=== PATIENT | female | born 1970 | race Caucasian/White ===

== ENCOUNTER 2021-05-08 09:28 | Outpatient (CLI) | payer OTHER, SELFPAY ==
[2021-05-08 09:57] LABS: Basophils Percent Auto 0.6 % (0.2-1.2); Eosinophils Absolute Auto 0.4 K/mm3 (0-0.3); Eosinophils Percent Auto 6.3 % (0-4.4); Hematocrit 42.4 % (37.0-47.0); Hemoglobin 13.6 g/dL (12.0-15.0); Immature Granulocyte Absolute 0.02 K/mm3 (0.00-0.031); Immature Granulocyte Percent A 0.3 % (0-0.5); Lymphocytes Absolute Auto 2.04 K/mm3 (0.9-3.2); Lymphocytes Percent Auto 29.4 % (18.3-44.2); Mean Corpuscular HGB Conc 32.1 g/dl (32-36); Mean Corpuscular Hemoglobin 28.3 pg (26-34); Mean Corpuscular Volume 88.1 fl (80-100); Mean Platelet Volume 9.4 fl (7.4-10.4); Monocytes Absolute Auto 0.4 K/mm3 (0.1-0.6); Monocytes Percent Auto 6.1 % (2.6-8.5); Neutrophils Percent Auto 57.3 % (45.5-73.1); Platelet Count Result 259 k/mm3 (150-375); Red Blood Count 4.81 M/mm3 (4.2-5.4); Red Cell Distribution Width 13.6 % (11.5-14.5); White Blood Count 6.9 K/mm3 (4.5-10.0)
[2021-05-08 11:52] LABS: Alanine Aminotransferase 41 U/L (4-35); Albumin Level 4.5 g/dL (3.5-5.1); Alkaline Phosphatase 70 U/L (38-126); Anion Gap 11 mmol/L (8-16); Aspartate Amino Transferase 39 U/L (14-36); Bilirubin,Total 0.5 mg/dL (0.2-1.3); Blood Urea Nitrogen 21 mg/dL (7-17); Calcium 9.4 mg/dL (8.4-10.2); Carbon Dioxide 22 mmol/L (22-30); Chloride 106 mmol/L (98-107); Cholesterol 82 mg/dL (0-200); Estimated Glomerular Filt Rate > 60; Glucose 110 mg/dL (65-110); HDL Direct 31 mg/dL; Potassium 3.9 mmol/L (3.4-5.0); Sodium 139 mmol/L (137-145); Triglycerides 140 mg/dL (<150)
[2021-05-08 12:03] LABS: LDL Cholesterol Direct 94 mg/dL
[2021-05-08 14:50] LABS: Free T4 Free Thyroxine Reflex 0.86 ng/dL (0.78-2.19)
[2021-05-08 21:10] LABS: Total Triiodothyronine (T3) 1.39 NG/ML (0.97-1.69)
== END 2021-05-08 09:29 | disposition home or self-care (01) ==
PROVIDERS: PCP Family Medicine; Visit Provider Physician Assistant
DX: F41.9 Anxiety disorder, unspecified (principal); I10 Essential (primary) hypertension; Z13.220 Encounter for screening for lipoid disorders
CPT/HCPCS: 36415; 80053; 80061; 84439; 84443; 84480; 85025

== ENCOUNTER 2022-01-16 17:13 | Outpatient (CLI) | payer OTHER, SELFPAY ==
[2022-01-16 17:39] LABS: Basophils Percent Auto 0.4 % (0.2-1.2); Eosinophils Absolute Auto 0.4 K/mm3 (0-0.3); Eosinophils Percent Auto 5.2 % (0-4.4); Hematocrit 44.9 % (37.0-47.0); Hemoglobin 14.3 g/dL (12.0-15.0); Immature Granulocyte Absolute 0.03 K/mm3 (0.00-0.031); Immature Granulocyte Percent A 0.4 % (0-0.5); Lymphocytes Absolute Auto 1.79 K/mm3 (0.9-3.2); Lymphocytes Percent Auto 26.7 % (18.3-44.2); Mean Corpuscular HGB Conc 31.8 g/dl (32-36); Mean Corpuscular Hemoglobin 28.7 pg (26-34); Mean Corpuscular Volume 90.2 fl (80-100); Mean Platelet Volume 9.2 fl (7.4-10.4); Monocytes Absolute Auto 0.4 K/mm3 (0.1-0.6); Monocytes Percent Auto 6.1 % (2.6-8.5); Neutrophils Absolute Auto 4.1 K/mm3 (1.3-6.7); Neutrophils Percent Auto 61.2 % (45.5-73.1); Platelet Count Result 264 k/mm3 (150-375); Red Blood Count 4.98 M/mm3 (4.2-5.4); Red Cell Distribution Width 14.9 % (11.5-14.5); White Blood Count 6.7 K/mm3 (4.5-10.0)
[2022-01-16 17:49] LABS: Alanine Aminotransferase 31 U/L (6-35); Albumin Level 4.6 g/dL (3.5-5.1); Alkaline Phosphatase 73 U/L (38-126); Anion Gap 7 mmol/L (8-16); Aspartate Amino Transferase 37 U/L (14-36); Bilirubin,Total 0.7 mg/dL (0.2-1.3); Blood Urea Nitrogen 18 mg/dL (7-17); Calcium 8.9 mg/dL (8.4-10.2); Carbon Dioxide 26 mmol/L (22-30); Chloride 104 mmol/L (98-107); Cholesterol 175 mg/dL (0-200); Estimated Glomerular Filt Rate 58; Glucose 104 mg/dL (65-110); HDL Direct 29 mg/dL; Potassium 3.9 mmol/L (3.4-5.0); Sodium 137 mmol/L (137-145); Triglycerides 189 mg/dL (<150)
[2022-01-16 17:52] LABS: Hemoglobin A1C 5.4 % (<5.7)
[2022-01-16 18:00] LABS: LDL Cholesterol Direct 95 mg/dL
[2022-01-16 18:19] LABS: Total Triiodothyronine (T3) 1.17 NG/ML (0.97-1.69)
[2022-01-16 18:25] LABS: Free T4 Free Thyroxine 0.87 ng/mL (0.78-2.19)
== END 2022-01-16 17:14 | disposition home or self-care (01) ==
LOC: ANHLAB 17:14
PROVIDERS: PCP Family Medicine; Visit Provider Family Medicine
DX: E11.9 Type 2 diabetes mellitus without complications (principal); E03.9 Hypothyroidism, unspecified; I10 Essential (primary) hypertension
CPT/HCPCS: 36415; 80053; 80061; 83036; 84439; 84443; 84480; 85025

== ENCOUNTER 2022-01-21 14:52 | Outpatient (CLI) | payer OTHER, SELFPAY ==
--- NOTE | ~2022-01-21 | XR_ITS ---
EXAMINATION: XR chest 2V 01/21/2022 15:14 INDICATION: Shortness of breath PROCEDURE: 2 view chest COMPARISON: No prior studies for comparison. FINDINGS: The lungs are clear. The cardiomediastinal silhouette is within normal limits. There are no pleural effusions. There is no pneumothorax suspected. IMPRESSION: 1: NO ACUTE CARDIOPULMONARY DISEASE. Reviewed, dictated and finalized at location A.
== END 2022-01-21 14:53 | disposition home or self-care (01) ==
PROVIDERS: PCP Family Medicine; Visit Provider Nurse Practitioner Gerontology
DX: R06.02 Shortness of breath (principal)
CPT/HCPCS: 71046

== ENCOUNTER 2022-02-19 13:56 | Outpatient (CLI) | payer OTHER, SELFPAY ==
--- NOTE | ~2022-02-19 | CT_ITS ---
EXAMINATION: CT abdomen pelvis w con DATE: 02/19/2022 14:31 INDICATION: Nausea and vomiting. Diarrhea. Abdominal pain. TECHNIQUE: Computed tomography (CT) of the abdomen and pelvis was performed with 100 mL Omnipaque 300 intravenous contrast. Automated exposure control and iterative reconstruction technique were employe d. The dose-length product was 1437.36 mGy-cm. COMPARISON: None. FINDINGS: The visualized portions of the lung bases are clear without pneumonia or pleural effusion. The heart size is normal. No pericardial effusion. There is diffuse hepatic steatosis. The gallbladde r, spleen, pancreas, and adrenal glands are normal. There is mild atrophy of the kidneys. There are n o dilated loops of bowel. The appendix is not visualized. There is an umbilical hernia containing fat . There are no pathologically enlarged lymph nodes. There is no free intraperitoneal fluid. There is severe lumbar spondylosis. IMPRESSION: 1. Diffuse hepatic steatosis. 2. Umbilical hernia containing fat. Reviewed, dictated and finalized at location A.
[2022-02-19 14:23] LABS: Estimated Glomerular Filt Rate > 60
== END 2022-02-19 13:57 | disposition home or self-care (01) ==
PROVIDERS: PCP Family Medicine; Visit Provider Nurse Practitioner Gerontology
DX: R11.2 Nausea with vomiting, unspecified (principal); R19.7 Diarrhea, unspecified; R10.9 Unspecified abdominal pain; K76.0 Fatty (change of) liver, not elsewhere classified; K42.9 Umbilical hernia without obstruction or gangrene
CPT/HCPCS: 74177; Q9967

== ENCOUNTER 2022-04-10 01:49 | Day surgery (SDC) | payer OTHER, SELFPAY ==
[2022-04-01 12:28] VITALS: BMI 47.2
[2022-04-10 09:17] VITALS: BP 176/105; PULSE 101; RESP 20; TEMP 36.1; O2SAT 99; BMI 46.7
--- NOTE | 2022-04-10 09:33 | PM.HPGS ---
History of Present Illness History of Present Illness Consent: Risks, benefits, and alternatives have been discussed and questions answered. Patient agrees to proceed with procedure. Chief complaint: N&V, diarrhea Narrative: Brittaney Kaur is a 52 year old female with intermittent episodes of n/v/d. CT scan a/p negative to explain symptoms, never had scopes. Review of Systems Constitutional: Constitutional: Denies headache(s) and Denies weakness Eyes: Eyes: Denies blurry vision ENT: Reports Normal hearing present, Denies headache(s) and Denies neck pain Cardiovascular: Cardiovascular: Denies chest pain and Denies dyspnea Respiratory: Respiratory: Denies dyspnea Gastrointestinal: Gastrointestinal: Reports no additional gastrointestinal complaints Genitourinary: Genitourinary: Denies dysuria Musculoskeletal: Musculoskeletal: Denies neck pain Integumentary/Breasts: Skin/Breast: Denies dry skin Neurologic: Reports Normal hearing present, Denies headache(s) and Denies weakness Psychiatric: Psychiatric: Denies anxiety Endocrine: Endocrine: Denies change in body appearance Hematologic/Lymphatic: Hematologic/Lymphatic: Denies easy bleeding Allergic/Immunologic: Allergic/Immunologic: Denies urticaria PMFSH Past Medical History Medical History ADD (attention deficit disorder) without hyperactivity Adult BMI 40.0-44.9 kg/sq m Benign essential HTN Generalized anxiety disorder Major depressive disorder MARY on CPAP Sinusitis Surgical History Surgical History History of appendectomy History of carpal tunnel release History of total hysterectomy Tubal ligation status Family History Family History Mother Family history of bipolar disorder Other Asthma Depression OCD (obsessive compulsive disorder) Social History Social History Social History: Smoking status: Never smoker Second hand tobacco smoke exposure: No Alcohol intake: current Substance use: never Substance use type: does not use Living arrangements: with family Gender identity (if verbalized by the patient): Female Sexual Orientation (if Verbalized by the Patient): Straight or Heterosexual Spiritual care concerns: No Meds Home Medications and Allergies Home Medications Medication Instructions Recorded Confirmed Type fluoxetine 40 mg capsule 40 mg PO DAILY 01/10/21 04/10/22 History lamotrigine 150 mg tablet 150 mg PO DAILY 01/10/21 04/10/22 History albuterol sulfate 90 mcg/actuation 1 inh inhalation Q4H PRN shortness 11/27/21 04/10/22 Rx aerosol inhaler (ProAir HFA) of breath or wheezing #8.5 grams carvedilol 25 mg tablet 25 mg PO Q12H #180 tabs 11/27/21 04/10/22 Rx losartan 100 1 tablet PO DAILY #90 tabs 11/27/21 04/10/22 Rx mg-hydrochlorothiazide 12.5 mg tablet methylphenidate HCl 36 mg 36 mg PO QAM 01/21/22 04/10/22 History tablet,extended release 24 hr (Concerta) nystatin 100,000 unit/gram topical 1 applic topical BID #30 grams 02/11/22 04/10/22 Rx cream duloxetine 60 mg capsule,delayed 60 mg PO DAILY 04/01/22 04/10/22 History release Allergies Allergy/AdvReac Type Severity Reaction Status Date / Time No Known Allergies Allergy Verified 04/10/22 09:27 Vital Signs Vital Signs - 24 hr 04/10/22 09:17 Temperature 97.0 F L Pulse Rate 101 H Respiratory Rate 20 Blood Pressure 176/105 H Pulse Oximetry 99 Oxygen Delivery Room Air Exam Const: General: comfortable and no acute distress HENMT: General nose exam: Normal nares present Eyes: General: appearance normal, both eyes and all related structures Neck: Neck: no JVD Resp: Auscultation: clear to auscultation bilaterally Cardio: Rate: regular rate Rhythm: regular rhyth
--- NOTE | 2022-04-10 09:36 | WPDANESEPPF ---
Anes - Initial Pre Proc Eval Procedure: Operation Date: 04/10/22 10:45 Proposed Procedures p Esophagogastroduodenoscopy & Colonoscopy - Alejandro Mcdonald MD Date/Time: 04/10/22 09:36 Surgeon: Alejandro Mcdonald MD Pre Op Diagnosis: N&V, diarrhea Patient Data Age: 52 Gender: F Height: 1.75 m Weight: 143.8 kg Last Vital Signs Temp 97.0 F L 04/10/22 09:17 Pulse 101 H 04/10/22 09:17 Resp 20 04/10/22 09:17 BP 176/105 H 04/10/22 09:17 Pulse Ox 99 04/10/22 09:17 O2 Del Method Room Air 04/10/22 09:17 Allergies Allergy/AdvReac Type Severity Reaction Status Date / Time No Known Allergies Allergy Verified 04/10/22 09:27 Home Medications Medication Instructions Recorded Confirmed Type fluoxetine 40 mg capsule 40 mg PO DAILY 01/10/21 04/10/22 History lamotrigine 150 mg tablet 150 mg PO DAILY 01/10/21 04/10/22 History albuterol sulfate 90 mcg/actuation 1 inh inhalation Q4H PRN shortness 11/27/21 04/10/22 Rx aerosol inhaler (ProAir HFA) of breath or wheezing #8.5 grams carvedilol 25 mg tablet 25 mg PO Q12H #180 tabs 11/27/21 04/10/22 Rx losartan 100 1 tablet PO DAILY #90 tabs 11/27/21 04/10/22 Rx mg-hydrochlorothiazide 12.5 mg tablet methylphenidate HCl 36 mg 36 mg PO QAM 01/21/22 04/10/22 History tablet,extended release 24 hr (Concerta) nystatin 100,000 unit/gram topical 1 applic topical BID #30 grams 02/11/22 04/10/22 Rx cream duloxetine 60 mg capsule,delayed 60 mg PO DAILY 04/01/22 04/10/22 History release Patient hx anesthesia problems: none Family hx anesthesia problems: none Results Review: All pre-operative results and documents have been reviewed as part of the pre-operative evaluation. [facility] Past Medical History Medical History ADD (attention deficit disorder) without hyperactivity Adult BMI 40.0-44.9 kg/sq m Benign essential HTN Generalized anxiety disorder Major depressive disorder MARY on CPAP Sinusitis Surgical History Surgical History History of appendectomy History of carpal tunnel release History of total hysterectomy Tubal ligation status Family History Family History Mother Family history of bipolar disorder Other Asthma Depression OCD (obsessive compulsive disorder) Social History Social History Social History: Smoking status: Never smoker Second hand tobacco smoke exposure: No Alcohol intake: current Substance use: never Substance use type: does not use Living arrangements: with family Gender identity (if verbalized by the patient): Female Sexual Orientation (if Verbalized by the Patient): Straight or Heterosexual Spiritual care concerns: No Anes - Eval Final PreProcedure Day of Procedure 04/10/22 09:36 Patient weight: morbidly obese Heart: regular rate and rhythm Lungs: clear to auscultation Airway: Mallampati scale class II Neurological: alert and oriented Last oral intake: >/= 8 hours ASA classification: III Emergent: no Anesthetic plan: proceed Anesthesia type and monitoring: general GIVS and standard monitoring Results Review: All pre-operative results and documents have been reviewed as part of the pre-operative evaluation. Informed Consent: The patient's anesthetic plan and its attendant risks and benefits were discussed with the patient/family/POA. Questions were solicited and answers provided to the satisfaction of the patient/family/POA.
[2022-04-10] MEDS: LACTATED RINGERS 1,000 ML 150 ML IV CONT (09:38)
[2022-04-10] MEDS: BENZOCAINE (*SP) 60 ML SPRAY CAN (HURRICAINE) 1 SPRAY MUCOUS MEM (09:46)
--- NOTE | 2022-04-10 09:56 | SUR.OPER ---
EGD ENDED AT 952, COLONOSCOPY STARTED AT 958.
[2022-04-10 10:10] VITALS: BP 156/94; PULSE 108; RESP 19; O2SAT 97
[2022-04-10 10:20] VITALS: BP 154/96; PULSE 102; RESP 16; O2SAT 98
[2022-04-10 10:30] VITALS: BP 152/101; PULSE 90; RESP 24; O2SAT 98
== END 2022-04-10 10:41 | disposition home or self-care (01) ==
PROVIDERS: PCP Family Medicine; Visit Provider Internal Medicine Gastroenterology
PROC: 0DJ08ZZ Inspection of Upper Intestinal Tract, Via Natural or Artificial Opening Endoscopic (ICD-10-PCS; CPT 43235; principal; 2022-04-10 10:45)
DX: Z12.11 Encounter for screening for malignant neoplasm of colon (principal); R19.7 Diarrhea, unspecified; R11.2 Nausea with vomiting, unspecified; R10.9 Unspecified abdominal pain; F98.8 Other specified behavioral and emotional disorders with onset usually occurring in childhood and adolescence; I10 Essential (primary) hypertension; F41.1 Generalized anxiety disorder; F32.A Depression, unspecified; G47.33 Obstructive sleep apnea (adult) (pediatric); Z79.51 Long term (current) use of inhaled steroids; E66.01 Morbid (severe) obesity due to excess calories; Z68.42 Body mass index [BMI] 45.0-49.9, adult
CPT/HCPCS: 45380; 43239; 88305; J2704; J7120

== ENCOUNTER 2022-04-24 08:14 | Outpatient (CLI) | payer OTHER, SELFPAY ==
--- NOTE | ~2022-04-24 | NM_ITS ---
EXAM: NM gastric emptying study DATE: 04/24/2022 13:19 INDICATION: Nausea and vomiting. TECHNIQUE: A gastric emptying study was performed using the methodology of Trent BAH, et al. J Nucl Med 2007; 48:568-572. The patient was given a meal consisting of 2 scrambled eggs labeled with 0.944 mCi Tc-99m sulfur colloid, 2 slices of toast, two packages of jam, and approximately 120 mL of water . Simultaneous anterior and posterior 1-min images of the abdomen were obtained with the patient supi ne at multiple time points over a total period of 4 hours. The geometric mean of anterior and posteri or views was determined, and the percentage retention was calculated for each time point. COMPARISON: CT abdomen and pelvis 02/19/2022 FINDINGS: Gastric retention of the radiotracer-labeled meal was 40%, 19%, and 5% at the 1-hour, 2-ho ur, and 4-hour time points, respectively. With this technique, apparent rapid gastric emptying is sug gested by <30% gastric retention at 1 hour. Delayed gastric emptying is defined by gastric retention of >90% at 1 hour, >60% retention at 2 hours, or >10% retention at 4 hours. IMPRESSION: 1. Normal gastric emptying. Reviewed, dictated and finalized at location A. IMPRESSION: 1. Normal gastric emptying.
== END 2022-04-24 08:15 | disposition home or self-care (01) ==
PROVIDERS: PCP Family Medicine; Visit Provider Internal Medicine Gastroenterology
DX: R11.2 Nausea with vomiting, unspecified (principal); R10.9 Unspecified abdominal pain
CPT/HCPCS: 78264; A9541

== ENCOUNTER 2024-08-31 09:09 | Outpatient (CLI) | payer OTHER, SELFPAY ==
[2024-08-31 09:46] LABS: Basophils Percent Auto 0.5 % (0.2-1.2); Eosinophils Absolute Auto 0.2 K/mm3 (0-0.3); Eosinophils Percent Auto 2.9 % (0-4.4); Hematocrit 46.4 % (37.0-47.0); Hemoglobin 15.4 g/dL (12.0-15.0); Immature Granulocyte Absolute 0.02 K/mm3 (0.00-0.031); Immature Granulocyte Percent A 0.3 % (0-0.5); Lymphocytes Percent Auto 24.8 % (18.3-44.2); Mean Corpuscular HGB Conc 33.2 g/dl (32-36); Mean Corpuscular Hemoglobin 29.6 pg (26-34); Mean Corpuscular Volume 89.2 fl (80-100); Mean Platelet Volume 9.2 fl (7.4-10.4); Monocytes Absolute Auto 0.4 K/mm3 (0.1-0.6); Monocytes Percent Auto 5.7 % (2.6-8.5); Neutrophils Absolute Auto 4.2 K/mm3 (1.3-6.7); Neutrophils Percent Auto 65.8 % (45.5-73.1); Platelet Count Result 244 k/mm3 (150-375); White Blood Count 6.5 K/mm3 (4.5-10.0)
[2024-08-31 09:54] LABS: Hemoglobin A1C 5.5 % (<5.7)
[2024-08-31 10:11] LABS: Free T4 Free Thyroxine 0.97 ng/dL (0.78-2.19)
[2024-08-31 11:00] LABS: Alanine Aminotransferase 28 U/L (6-35); Albumin Level 4.2 g/dL (3.5-5.1); Alkaline Phosphatase 55 U/L (38-126); Anion Gap 5 mmol/L (4-12); Aspartate Amino Transferase 38 U/L (14-36); Bilirubin,Total 0.8 mg/dL (0.2-1.3); Blood Urea Nitrogen 21 mg/dL (7-17); Calcium 9.6 mg/dL (8.4-10.2); Carbon Dioxide 24 mmol/L (22-30); Chloride 109 mmol/L (98-107); Cholesterol 204 mg/dL (0-200); Estimated Glomerular Filt Rate 57; Glucose 120 mg/dL (65-110); HDL Direct 33 mg/dL; Sodium 138 mmol/L (137-145); Triglycerides 187 mg/dL (<150)
[2024-08-31 11:08] LABS: LDL Cholesterol Direct 115 mg/dL
== END 2024-08-31 09:10 | disposition home or self-care (01) ==
LOC: ANHLAB 09:10
PROVIDERS: PCP Family Medicine; Visit Provider Physician Assistant
DX: E07.9 Disorder of thyroid, unspecified (principal); I10 Essential (primary) hypertension; E66.09 Other obesity due to excess calories; Z13.1 Encounter for screening for diabetes mellitus; Z13.220 Encounter for screening for lipoid disorders
CPT/HCPCS: 36415; 80053; 80061; 83036; 84439; 84443; 85025

== ENCOUNTER 2025-04-07 12:34 | Emergency (ER) | payer OTHER, SELFPAY ==
--- OUTSIDE RECORDS SUMMARY | 2025-04-07 12:36 | XMS_ITS | Clinical Summary ---
Author Organization [facility] Address [address] [place] [id number] Care Team Providers Care Prize Fighter Name Role Phone Unavailable Primary Care Provider Unavailabl e Immunizations Immunization Administration Dates Next Due MODERNA COVID-19 (12+) MRNA, LNP-S, PF, 100 MCG/ 0.5 ML DOSE 01/02/2021,12/05/2020 Social History Tobacco Use Types Packs/Day Years Used Date Smoking Tobacco: Never Assessed Comments Unknown Sex and Gender Information Value Date Recorded Sex Assigned at Not on file Legal Sex Female 3:07 PM CDT Gender Identity Not on file Sexual Orientation Not on file Plan of Treatment Health Maintenance Due Date Last Done Comments Cervical Cancer Screening Pa p Smear (Age 30 to 64) Every 3 Years 1968 Colorectal Cancer Screening Colonoscopy (10 Years) 1968 Annual Physical 01/03/1971 Hepatitis C 01/03/1986 DTaP, Tdap and Td Vaccines ( 1 - Tdap) 01/03/1987 Hepatitis B Vaccines (1 of 3 - 19+ 3-dose series) 01/03/1987 Cervical Cancer Screening Pa p with HPV Testing (Age 30 to 64) Every 5 Years 01/03/1998 Cervical Cancer Screening wi th HPV 01/03/1998 Mammogram Screening 2008 Pneumococcal Vaccine: 50+ Years (1 of 1 - PCV) 01/03/2018 Zoster Vaccines (1 of 2) 01/03/2018 COVID-19 Vaccine ( - 2023-2 5 season) 2024 01/02/2021, 12/05/2020 Meningococcal B Vaccine Aged Out No l onger eligible based on patient's age to complete this topic Meningococcal Vaccine Aged Out No rosy michael eligible based on patient's age to complete this topic RSV Immunizations Under 20 Months Aged Out No longer eligible b ased on patient's age to complete this topic
--- OUTSIDE RECORDS SUMMARY | 2025-04-07 12:36 | XMS_ITS | Clinical Summary ---
Author Organization [facility] Address [address] [place] [address] Care Team Providers Care Treasurer Name Role Phone Norah Ibarra MD Primary Care Provider + Source Comments [facility],non-owned Affiliates and Associated Physician Practices is amultiple site organization consisting of ambulatory clinics and hospital sitesin [place], [place], [place] and [place]. This disclosure is being madepursuant to the Care Everywhere program and may not contain all information available regarding this patient. Last updated 18.[facility] Allergies No known active allergies Medications * Be aware that medications may not be up to date on this document. Alwaysverify current medications with the patient. carvedilol (COREG) 3.125 MG tablet Take 3.125 mg by mouth 2 times daily with morning and evening meal. Active FLUoxetine (PROZAC) 10 MG capsule Take 10 mg by mouth at bedtime. Active lamoTRIgine (LAMICTAL) 150 MG tablet Take 150 mg by mouth 2 times daily. Active losartan (COZAAR) 25 MG tablet Take 25 mg by mouth at bedtime. Active valACYclovir (VALTREX) 500 MG tablet Take 500 mg by mouth at bedtime. Active Nutritional Supplements (ESTROVEN PO) Take by mouth at bedtime. Active methylphenidate CR 36 MG tablet Take 36 mg by mouth every morning. Active oxyCODONE-acetam inophen (PERCOCET) 5-325 MG tablet Take 1 Tab by mouth every 4 hours as needed for Pain. Active Social History Tobacco Use Types Packs/Day Years Used Date Smoking Tobacco: Never Comments Unknown Sex and Gender Information Value Date Recorded Sex Assigned at Not on file Legal Sex Female 3:37 PM CDT Gender Identity Not on file Sexual Orientation Not on file Last Filed Vital Signs Vital Sign Reading Time Taken Comments Blood Pressure 132/94 01/26/2015 12:11 PM CDT Pulse 105 01/26/2015 12:11 PM CDT Temperature - - Respiratory Rate 16 01/26/2015 12:11 PM CDT Oxygen Saturation 99% 01/26/2015 12:11 PM CDT Inhaled Oxygen Concentration - - Weight - - Height - - Body Mass Index - - Plan of Treatment Health Maintenance Due Date Last Done Comments COLOGUARD (AGES 45-75) - COL ON CA SCREENING 1968 COLON MONITORING 1968 COLONOSCOPY - COLON CA SCREENING 1968 CT COLONOGRAPHY - COLON CA SCREENING 1968 Colorectal Cancer Screening 1968 FIT - COLON CA SCREENING 1968 FLEX SIG - COLON CA SCREENING 1968 LIPID TESTING 1968 MAMMOGRAM 1968 HIV SCREENING 01/03/1983 HEPATITIS C SCREENING 12/30/1985 DTAP/TDAP/TD VACCINES (1 - Tdap) 01/03/1987 HEPATITIS B VACCINE (1 of 3 - 19+ 3-dose series) 01/03/1987 PNEUMOCOCCAL VACCINE 50+ (1 of 1 - PCV) 01/03/2018 ZOSTER VACCINE (1 of 2) 01/03/2018 COVID-19 VACCINE (1 - 2023-2 5 season) 2024 DEPRESSION SCREENING 09/01/2024 INFLUENZA VACCINE (#1) 2025 HIB VACCINE Aged Out No longer eligi ble based on patient's age to complete this topic HPV VACCINE Aged Out No longer eligi ble based on patient's age to complete this topic MENINGOCOCCAL (Group B) VACC INE SHARED DECISION-MAKING Aged Out No longer eligibl e based on patient's age to complete this topic MENINGOCOCCAL GROUPS A/C/Y/W VACCINE Aged Out No longer eligible b ased on patient's age to complete this topic Insurance [facility] Care Teams Treasurer Relationship Specialty Start Date End Date Norah Ibarra MD [address] [place] [address] PCP - General Family Medicine 01/04/15
[2025-04-07 12:40] VITALS: BP 149/93; PULSE 84; RESP 18; TEMP 36.4; O2SAT 98
[2025-04-07] MEDS: oxyCODONE/ACETAMINOPHEN (*CRX) 5-325 MG TABLET 1 TABLET PO (14:54)
--- OUTSIDE RECORDS SUMMARY | 2025-04-07 14:58 | XMS_ITS | Clinical Summary ---
Author Organization [facility] Address [address] [place] [address] Care Team Providers Care Clinical Biostatistics Director Name Role Phone Norah Ibarra MD Primary Care Provider + Source Comments [facility],non-owned Affiliates and Associated Physician Practices is amultiple site organization consisting of ambulatory clinics and hospital sitesin [place], [place], [place] and [place]. This disclosure is being madepursuant to the Care Everywhere program and may not contain all information available regarding this patient. Last updated 18.[facility] Allergies No known active allergies Medications * [...] patient's age to complete this topic Insurance [facility] Care Teams Clinical Biostatistics Director Relationship Specialty Start Date End Date Norah Ibarra MD [address] [place] [address] PCP - General Family Medicine 01/04/15
--- OUTSIDE RECORDS SUMMARY | 2025-04-07 14:59 | XMS_ITS | Clinical Summary ---
Author Organization [facility] Address [address] [place] [id number] Care Team Providers Care Supervisor Type Bar And Segment Name Role Phone Unavailable Primary Care Provider [...]
--- NOTE | 2025-04-07 15:03 | ED.EAR ---
HPI - Ear Problem General Chief complaint: Ear Stated complaint: right ear pain Time Seen by Provider: 04/07/25 14:14 History of Present Illness HPI Narrative: Patient is a 55-year-old female who presents ER with pain and swelling to her right ear from the PCP office. She woke up this morning her ear was swollen shut. She has muffled hearing and pain with movement of her ear. She has not been swimming in any fresh water elements. She has no drainage from the ear. Denies sticking anything in her ear that could of cotton stuck. Related Data Home Medications ?Medication ?Instructions ?Recorded ?Confirmed ?Last Taken ?Type fluoxetine 40 mg capsule 40 mg PO DAILY 01/10/21 04/07/25 Unknown History lamotrigine 150 mg tablet 150 mg PO DAILY 01/10/21 04/07/25 Unknown History methylphenidate HCl 36 mg 36 mg PO QAM 01/21/22 04/07/25 Unknown History tablet,extended release 24 hr (Concerta) duloxetine 60 mg capsule,delayed 60 mg PO DAILY 04/01/22 04/07/25 Unknown History release Allergies Allergy/AdvReac Type Severity Reaction Status Date / Time No Known Allergies Allergy Verified 04/07/25 12:35 Review of Systems Constitutional: Constitutional: Reports no additional constitutional complaints ENT: Reports system reviewed and no additional complaints, except as documented PMFSH Past Medical History Medical History Sinusitis Major depressive disorder Generalized anxiety disorder MARY on CPAP Adult BMI 40.0-44.9 kg/sq m Benign essential HTN ADD (attention deficit disorder) without hyperactivity Surgical History Surgical History History of total hysterectomy Tubal ligation status History of appendectomy History of carpal tunnel release Family History Family History Mother Family history of bipolar disorder Other Asthma Depression OCD (obsessive compulsive disorder) Social History Social History Social History: Smoking status: Never smoker Second hand tobacco smoke exposure: No Alcohol intake: current Substance use: never Substance use type: does not use Do You Feel Safe in your Home?: Yes Lack of Transportation: No Lack of Food: Never True Current Housing: I Have Housing Concerned About Future Housing: No Difficulty Paying Gas/Electric Bills: No Difficulty Paying for Meds: No Currently Unemployed: YES Education: Don't Know Difficulty w/ Childcare or Family Care: No Living arrangements: with family Occupation/Education: unemployed Gender identity (if verbalized by the patient): Female Sexual Orientation (if Verbalized by the Patient): Straight or Heterosexual Spiritual care concerns: No Exam Narrative: GENERAL: Well-appearing, well-nourished, and in no acute distress. HEAD: Normocephalic, atraumatic. ENT: Mucous membranes moist. Otitis externa on the right with some edematous and erythematous ear canal. Tenderness with manipulation of the auricle. No tenderness over the right mastoid process. NECK: Patient has anterior cervical chain lymphadenopathy on the right side. CHEST: Clear to auscultation. No respiratory distress. HEART: Regular rate and rhythm. No murmur heard. Normal peripheral pulses. EXTREMITIES: Normal range of motion. No edema. NEURO: Alert and oriented x3. PSYCH: Normal mood and affect. Course Course Emergency Course: Ear wick placed in right ear canal. Backup given to . Will prescribe Ciprodex for home as well as ciprofloxacin. Percocet for pain. Vital Signs Vital signs: Vital Signs Temperature 97.6 F 04/07/25 12:40 Pulse Rate 84 04/07/25 12:40 Respiratory Rate 18 04/07/25 12:40 Blood Pressure 149/93 H 04/07/25 12:40 Pulse Oximetry 98 04/07/25 12:40 Oxygen Delivery Room Air 04/07/25 12:40 Temperature 97.6 F 04/07/25 12:40 Pulse Rate 84 04/07/25 12:40 Respiratory Rate 18 04/07/25 12:40 Blood Pressure 149/93 H 04/07/25 12:40 Pulse Oximetry 98 04/07/25 12:40 Oxygen Delivery Room Air 04/07/25 12:40 Medical Decision Making Vital Signs Vital Signs: Vital Signs Temperature 97.6 F 04/07/25 12:40 Pulse Rate 84 04/07/25 12:40 Respiratory Rate 18 04/07/25 12:40 Blood Pressure 149/93 H 04/07/25 12:40 Pulse Oximetry 98 04/07/25 12:40 Oxygen Delivery Room Air 04/07/25 12:40 Temperature 97.6 F 04/07/25 12:40 Pulse Rate 84 04/07/25 12:40 Respiratory Rate 18 04/07/25 12:40 Blood Pressure 149/93 H 04/07/25 12:40 Pulse Oximetry 98 04/07/25 12:40 Oxygen Delivery Room Air 04/07/25 12:40 Discharge Plan Discharge Clinical Impression: Otitis externa Patient Disposition: Home Condition: Stable Instructions: Swimmer's Ear (ED) Additional Instructions: You will need to keep the ear wick in place for 48 hours of antibiotic treatment. You may then remove it. Take the oral and your drop medication as prescribed. Take Tylenol with oxycodone for pain. Follow-up with primary care doctor for further treatment evaluation. Patient Language: Bulgarian Prescriptions: New ciprofloxacin-dexamethasone 0.3-0.1 % drops,suspension 4 drp RIGHT EAR Q12H 7 Days Qty: 7.5 0RF ciprofloxacin HCl 500 mg tablet 500 mg PO Q12H Qty: 20 0RF oxycodone-acetaminophen [Percocet] 5-325 mg tablet 1 tablet PO Q6H PRN (Reason: pain) Qty: 14 0RF No Action losartan-hydrochlorothiazide 100-12.5 mg tablet See Rx Instructions .ROUTE .COMPLEX Qty: 90 1RF Dose Instruction: TAKE 1 TABLET BY MOUTH DAILY Rx Instructions: TAKE 1 TABLET BY MOUTH DAILY carvedilol 25 mg tablet See Rx Instructions .ROUTE .COMPLEX Qty: 180 1RF Dose Instruction: TAKE 1 TABLET BY MOUTH EVERY 12 HOURS Rx Instructions: TAKE 1 TABLET BY MOUTH EVERY 12 HOURS nystatin-triamcinolone 100,000-0.1 unit/gram-% ointment 1 applic topical BID Qty: 60 2RF lamotrigine 150 mg tablet 150 mg PO DAILY fluoxetine 40 mg capsule 40 mg PO DAILY methylphenidate HCl [Concerta] 36 mg tablet extended release 24hr 36 mg PO QAM duloxetine 60 mg capsule,delayed release(DR/EC) 60 mg PO DAILY albuterol sulfate 90 mcg/actuation HFA aerosol inhaler 1 inh inhalation Q4H PRN (Reason: shortness of breath or wheezing) Qty: 8.5 0RF Follow-up/Referrals: Dylan Cassidy MD [Primary Care Provider] -
== END 2025-04-07 15:25 | disposition home or self-care (01) ==
PROVIDERS: Emergency Provider Emergency Medicine; PCP Family Medicine
DX: H60.91 Unspecified otitis externa, right ear (principal); G47.33 Obstructive sleep apnea (adult) (pediatric); I10 Essential (primary) hypertension; F98.8 Other specified behavioral and emotional disorders with onset usually occurring in childhood and adolescence; F32.9 Major depressive disorder, single episode, unspecified; F41.1 Generalized anxiety disorder; Z79.899 Other long term (current) drug therapy
CPT/HCPCS: 99283; A9270